=== PATIENT | female | born 1995 | race Caucasian/White ===

== ENCOUNTER → 2017-03-05 | Outpatient (CLI) | payer OTHER ==
[~2017-03-05] MED LIST: CLEOCIN HCL150 MG PO; HYDROCODONE-APA1 TA1 PO; TRIPHASIL; ULTRAM 50MG TAB50 MG PO
[2017-03-05 15:57] LABS: HEMATOCRIT 42.6 % (37.0-47.0); HEMOGLOBIN 14.4 gm/dL (12.0-15.0); MCH 29.5 pg (26.0-34.0); MCHC 33.7 g/dL (28.0-37.0); MCV 87.6 fL (80.0-100.0); MPV 7.9 fl. (7.2-11.1); RBC 4.86 mil/uL (4.20-5.00); WBC 10.3 thou/uL (4.0-11.0)
== END ==
LOC: M.RAD 15:28
PROVIDERS: Nurse Practitioner Family
DX: J18.9 Pneumonia, unspecified organism (principal)

== ENCOUNTER 2018-10-23 11:50 | Emergency (ER) | payer OTHER ==
[~2018-10-23] VITALS: Ht 162.6 cm; Wt 77.1 kg
[2018-10-23] MEDS ORDERED: MEDROLDOSEPACK PO (13:46)
[2018-10-23] MEDS ORDERED: ROBAXIN 750 MG750 MG PO (13:46)
[2018-10-23 14:05] VITALS: BP 130/84
== END 2018-10-23 14:05 | disposition home or self-care (01) ==
LOC: M.ERS 11:50
DX: S16.1XXA Strain of muscle, fascia and tendon at neck level, initial encounter (principal); S39.012A Strain of muscle, fascia and tendon of lower back, initial encounter; S70.12XA Contusion of left thigh, initial encounter; Z88.1 Allergy status to other antibiotic agents; Z88.2 Allergy status to sulfonamides; Z88.8 Allergy status to other drugs, medicaments and biological substances; V89.2XXA Person injured in unspecified motor-vehicle accident, traffic, initial encounter; Y92.89 Other specified places as the place of occurrence of the external cause; Y93.89 Activity, other specified; Y99.8 Other external cause status